=== PATIENT | female | born 1960 | race Caucasian/White ===

== ENCOUNTER 2021-03-17 07:38 | Emergency (ER) | payer OTHER ==
[2021-03-17 07:59] VITALS: BP 127/71
--- NOTE | 2021-03-17 08:02 | ED Physician Documentation ---
PD HPI UPPER EXT INJURY - Stated complaint Stated Complaint: GLF - Chief complaint Chief Complaint: Ext Problem - History obtained from History obtained from: Patient - History of Present Illness Location: Left, Hand, Finger Type of injury: Fall (she ws walking to mailbox in dark, holding flashlight, and fell, landing onto the left hand holding the light. Pain and abrasion left thumb. SOme pain in elbow and shoulder too. No other injury.) Where injury occurred: Home Timing - onset: Last night Timing - details: Abrupt onset, Still present Improved by: No: Rest Worsened by: Moving, Palpating Associated symptoms: Swelling, Other (abrasion) Similar symptoms before: Has not had sx before Review of Systems Skin: reports: Abrasion (s). denies: Laceration (s) Musculoskeletal: denies: Neck pain, Back pain Neurologic: denies: Focal weakness, Numbness, Altered mental status, Head injury PD PAST MEDICAL HISTORY - Past Medical History Cardiovascular: None Neuro: None - Allergies Allergies/Adverse Reactions: Allergies Allergy/AdvReac Type Severity Reaction Status Date / Time No Known Drug Allergies Allergy Verified 03/17/21 07:59 PD ED PE NORMAL - Vitals Vital signs reviewed: Yes - General General: Alert and oriented X 3, No acute distress, Well developed/nourished - Derm Derm: Normal color, Warm and dry - Extremities Extremities: Other (left thumb with dorsal abrasion proximally. Tender with swelling along base and on ulnar side. Too tender to really stress test the UCL. Normal color in nailbed. Guarded ROM at MCP due to pain. Elbow and shoulder without bony tenderness and have good ROM. ) - Neuro Neuro: Alert and oriented X 3, No motor deficit, No sensory deficit, Normal speech Results - Vitals Vitals: Vital Signs - 24 hr 03/17/21 07:51 Temperature 36.6 C Heart Rate 68 Respiratory 15 Rate Blood Pressure 127/71 O2 Saturation 99 Oxygen O2 Source Room air - Rads (name of study) left hand Radiology: Prelim report reviewed (no fractures), See rad report PD MEDICAL DECISION MAKING - ED course Complexity details: reviewed results, considered differential (abrasion cleansed and dressed in ER. Thumb spice splint applied. Given the mechanism, have concern for UCL tear. ), d/w patient Departure - Departure Disposition: 01 Home, Self Care Clinical Impression: Fall from slip, trip, or stumble Qualifiers: Encounter type: initial encounter Qualified Code(s): W01.0XXA - Fall on same level from slipping, tripping and stumbling without subsequent striking against object, initial encounter Left thumb sprain Qualifiers: Encounter type: initial encounter Sprain of finger site: metacarpophalangeal joint Qualified Code(s): S63.642A - Sprain of metacarpophalangeal joint of left thumb, initial encounter Abrasion of thumb Qualifiers: Encounter type: initial encounter Laterality: left Qualified Code(s): S60.312A - Abrasion of left thumb, initial encounter Condition: Stable Record reviewed to determine appropriate education?: Yes Instructions: Skier's Thumb, ED Sprain Finger Follow-Up: Cory Rodríguez MD [Provider Admit Priv/Credential] - Comments: Your x-ray is normal without any signs of fractures chips or dislocation. Your thumb is obviously injured with the pain and swelling. Hopefully is just a sprain of the ligaments and tendons in the joint and will get better over the next several days to week or so. Consideration would be an injury of the ulnar collateral ligament at the base of the thumb which could take longer to heal, even up to a month or so with splinting. Uncommonly would need surgical repair. You would be good to see how your thumb is doing after the initial pain and swelling are improved. Use the splint most of the time over the next week to 10 days. Follow-up with orthopedics for reevaluation of it, call for an appointment. Timeframe would be in about 1-1/2 weeks or so. If this improves well back to normal function in that timeframe, no follow-up necessarily needed. Tylenol or ibuprofen or both if needed for pains. Care of the abrasion with cleaning soap and water and applying ointment and bandaging to protect it. Recheck if signs of infection. Discharge Date/Time: 03/17/21 09:54
[2021-03-17] MEDS ORDERED: IBUPROFEN 600 MG TABLET PO STA (08:37)
--- NOTE | 2021-03-17 09:09 | XRAY Report ---
PROCEDURE: Hand 3 View LT INDICATIONS: fell with thumb/wrist pain TECHNIQUE: 3 views of the hand(s) acquired. COMPARISON: None. FINDINGS: Bones: No fractures or dislocations. Visualized osseous structures appear osteopenic. No suspicious bony lesions. Soft tissues: No suspicious soft tissue calcifications. IMPRESSION: 1. No fracture or dislocation. Reviewed by: Brandyn Crawford MD on 03/17/2021 9:08 AM [facility] Approved by: Brandyn Crawford MD on 03/17/2021 9:08 AM [facility] Station ID: [id number]
== END 2021-03-17 09:54 | disposition home or self-care (01) ==
LOC: ED 07:38
DX: S63.642A Sprain of metacarpophalangeal joint of left thumb, initial encounter (principal); S60.312A Abrasion of left thumb, initial encounter; W18.30XA Fall on same level, unspecified, initial encounter; Y93.01 Activity, walking, marching and hiking; Y92.008 Other place in unspecified non-institutional (private) residence as the place of occurrence of the external cause
CPT/HCPCS: 73130; 99282; 99283; A9270

== ENCOUNTER 2021-05-15 01:43 | Emergency (ER) | payer OTHER ==
--- NOTE | 2021-05-15 02:07 | ED Physician Documentation ---
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 7/10, aching, waxing and waning in severity, worse with certain position changes. denies soa, cough, fever, leg swelling, nausea. Review of Systems Ten Systems: 10 systems reviewed and negative Constitutional: denies: Fever, Chills Throat: denies: Sore throat Cardiac: reports: Chest pain / pressure. denies: Palpitations Respiratory: denies: Dyspnea, Cough GI: denies: Nausea PD PAST MEDICAL HISTORY - Past Medical History Cardiovascular: None Respiratory: None Neuro: None Endocrine/Autoimmune: None GI: [employer] LEAD[employer]ER: Ovarian cysts HEENT: None Psych: None Derm: None - Past Surgical History Past Surgical History: No - Allergies Allergies/Adverse Reactions: Allergies Allergy/AdvReac Type Severity Reaction Status Date / Time No Known Drug Allergies Allergy Verified 05/15/21 02:17 - Social History Does the pt smoke?: No Smoking Status: Never smoker Does the pt drink ETOH?: No Does the pt have substance abuse?: Yes - Immunizations Immunizations are current?: Yes - POLST Patient has POLST: No PD ED PE NORMAL - Vitals Vital signs reviewed: Yes - General General: Alert and oriented X 3, No acute distress, Well developed/nourished - HEENT HEENT: Atraumatic, PERRL, EOMI - Neck Neck: Supple, no meningeal sign - Cardiac Cardiac: RRR - Respiratory Respiratory: No respiratory distress, Clear bilaterally - Abdomen Abdomen: Non tender, Non distended - Back Back: No CVA TTP - Derm Derm: Normal color, Warm and dry - Extremities Extremities: No deformity - Neuro Neuro: Alert and oriented X 3, No motor deficit, No sensory deficit - Psych Psych: Normal mood, Normal affect Results - Vitals Vitals: Vital Signs - 24 hr 05/15/21 05/15/21 01:45 04:02 Temperature 36.4 C L Heart Rate 66 63 Respiratory 18 16 Rate Blood Pressure 181/93 H 146/59 H O2 Saturation 98 97 Oxygen O2 Source Room air - EKG (time done) 0147 Rate: Rate (enter#) (64) Rhythm: NSR [place]: Normal Intervals: Normal [place] QRS: Normal Ischemia: Normal ST segments - Labs Labs: Laboratory Tests 05/15/21 05/15/21 05/15/21 02:10 02:10 02:10 WBC 7.2 RBC 4.44 Hgb 14.0 Hct 40.6 MCV 91.4 MCH 31.5 H MCHC 34.5 RDW 11.7 L Plt Count 298 MPV 10.3 Neut # (Auto) 3.4 Lymph # (Auto) 2.8 Sampson # (Auto) 0.5 Eos # (Auto) 0.4 Baso # (Auto) 0.1 Absolute Nucleated RBC 0.00 Nucleated RBC % 0.0 Sodium 140 Potassium 4.0 Chloride 104 Carbon Dioxide 26 Anion Gap 10.0 BUN 15 Creatinine 0.8 Estimated GFR (MDRD) 73 L Glucose 102 H Calcium 8.9 Total Bilirubin 0.7 AST 17 ALT 19 Alkaline Phosphatase 74 Troponin I High Sens 5.8 Total Protein 7.0 Albumin 4.0 Globulin 3.0 Albumin/Globulin Ratio 1.3 Lipase 103 H 05/15/21 04:15 WBC RBC Hgb Hct MCV MCH MCHC RDW Plt Count MPV Neut # (Auto) Lymph # (Auto) Sampson # (Auto) Eos # (Auto) Baso # (Auto) Absolute Nucleated RBC Nucleated RBC % Sodium Potassium Chloride Carbon Dioxide Anion Gap BUN Creatinine Estimated GFR (MDRD) Glucose Calcium Total Bilirubin AST ALT Alkaline Phosphatase Troponin I High Sens 5.3 Total Protein Albumin Globulin Albumin/Globulin Ratio Lipase PD MEDICAL DECISION MAKING - ED course ED course: 61yF presents with atypical chest pain, found to have normal EKG, CXR, and negative trop X 2. HEART score 2 (age, risk factors). Low risk for PE - no leg swelling, recent travel/bedrest, no cancer, not on hormones, no prior hx clots. Pain improved to 3/10 on its own. patient declining medication. discussed results with patient and return precautions given. Plan to f/u with her PMD in [place]. Departure - Departure Disposition: 01 Home, Self Care Clinical Impression: Chest pain Condition: Good Instructions: ED Chest Pain Atypical Unkn Cause Comments: You were seen in the ED for evaluation of chest pain. Your labwork, ekg, and chest xray uncovered no emergent cause for your symptoms. Please follow up with your primary doctor this week for further management. Return to the ED if you have any new or worsening symptoms or other concerns.
[2021-05-15 02:16] LABS: BASOPHILS # (AUTO) 0.1 10^3/uL (0.0-0.1); BASOPHILS % (AUTO) 1.4 %; EOSINOPHILS # (AUTO) 0.4 10^3/uL (0.0-0.7); EOSINOPHILS % (AUTO) 5.6 %; HCT - HEMATOCRIT 40.6 % (37.0-47.0); LYMPHOCYTES # (AUTO) 2.8 10^3/uL (1.5-3.5); LYMPHOCYTES % (AUTO) 38.9 %; MEAN CORPUSCULAR HEMOGLOBIN 31.5 pg (27.0-31.0); MEAN CORPUSCULAR HGB CONC 34.5 g/dL (32.0-36.0); MEAN CORPUSCULAR VOLUME 91.4 fL (81.0-99.0); MEAN PLATELET VOLUME 10.3 fL (7.9-10.8); MONOCYTES # (AUTO) 0.5 10^3/uL (0.0-1.0); MONOCYTES % (AUTO) 7.4 %; NEUTROPHILS # (AUTO) 3.4 10^3/uL (1.5-6.6); NEUTROPHILS % (AUTO) 46.6 %; PLT - PLATELET COUNT 298 10^3/uL (130-450); RED BLOOD COUNT 4.44 10^6/uL (4.20-5.40); RED CELL DISTRIBUTION WIDTH 11.7 % (12.0-15.0); WHITE BLOOD COUNT 7.2 x10^3/uL (4.8-10.8)
[2021-05-15 02:58] LABS: ALBUMIN/GLOBULIN RATIO 1.3 (1.0-2.2); BILIRUBIN,TOTAL 0.7 mg/dL (0.2-1.0); CREATININE 0.8 mg/dL (0.4-1.0)
[2021-05-15 03:13] LABS: CALCIUM 8.9 mg/dL (8.5-10.3)
[2021-05-15 04:57] VITALS: BP 145/70
--- NOTE | 2021-05-15 08:27 | XRAY Report ---
PROCEDURE: Chest 1 View X-Ray INDICATIONS: Chest Pain TECHNIQUE: One view of the chest was acquired. COMPARISON: None FINDINGS: Surgical changes and devices: None. Lungs and pleura: No pleural effusions or pneumothorax. Lungs are clear. Mediastinum: Mediastinal contours appear normal. Heart size is normal. Bones and chest wall: No suspicious bony lesions. Overlying soft tissues appear unremarkable. IMPRESSION: No acute cardiopulmonary disease process. Reviewed by: Nicolle Chang MD, PhD on 05/15/2021 8:26 AM [facility] Approved by: Nicolle Chang MD, PhD on 05/15/2021 8:26 AM PST Station ID: [id number]
== END 2021-05-15 05:04 | disposition home or self-care (01) ==
LOC: ED 01:43
DX: R07.9 Chest pain, unspecified (principal)
CPT/HCPCS: 36415; 80053; 83690; 84484; 85025; 93005; 99282; 99284